=== PATIENT | female | born 1975 | race African-American/Black ===

== ENCOUNTER 2017-10-13 17:31 | Emergency (ER) | payer SELFPAY ==
[~2017-10-13] VITALS: Ht 160 cm; Wt 49.9 kg
[2017-10-13 18:15] VITALS: BP 164/84
[2017-10-13 19:30] VITALS: BP 158/83
--- NOTE | 2017-10-13 21:24 | Emergency Room Report ---
History of Present Illness General Chief Complaint: Behavioral Complaint Present Illness HPI 42-year-old female presents to the emergency department brought by EMS for bizarre aggressive behavior in a liquor store. Patient is noncooperative and answering history of present illness or ROS questions. No complaints at this time. (Valerie Polk) Allergies: Coded Allergies: UNABLE TO ASSESS (Unverified , 10/13/17) Patient History Past Medical History: see triage record Last Menstrual Period: unk (Valerie Polk) Nursing Documentation-[facility] Past Medical History Deferred: Pt Cognitively Impaired (Valerie Polk) Review of Systems All Other Systems: limited - poor pt. cooperation (Valerie Polk) Physical Exam Vital Signs Date Time Temp Pulse Resp B/P (MAP) Pulse Ox O2 Delivery O2 Flow Rate FiO2 10/13/17 17:24 98.4 110 20 130/84 99 Room Air 98.4 Sp02 EP Interpretation: reviewed, normal General Appearance: no apparent distress, alert, GCS 15, non-toxic Head: normocephalic, atraumatic Eyes: bilateral eye normal inspection, bilateral eye PERRL - pin-point ENT: hearing grossly normal, normal voice Neck: full range of motion, no bony tend Respiratory: chest non-tender, lungs clear, normal breath sounds, no respiratory distress, no wheezing, speaking full sentences Cardiovascular #1: regular rate, rhythm, no edema, normal capillary refill Gastrointestinal: normal bowel sounds, non tender, soft Musculoskeletal: back normal, gait/station normal, normal range of motion, non- tender Neurologic: alert, oriented x3, responsive, motor strength/tone normal, sensory intact, speech normal, grossly normal Psychiatric: no suicidal/homicidal ideation, other - angry/aggressive, poorly cooperative, some bizare flights of ideas. Skin: normal color, no rash, warm/dry, well hydrated, other - no open wounds or abrasions (Valerie Polk) Medical Decision Making PA Attestation Dr. uribe is my supervising Physician whom patient management has been discussed with. (Valerie Polk) Diagnostic Impression: Primary Impression: Behavioral change Additional Impressions: Bizarre behavior UTI (urinary tract infection) ER Course 42-year-old female presents to the emergency department brought by EMS for bizarre aggressive behavior in a liquor store. Patient is noncooperative and answering history of present illness or ROS questions. No complaints at this time. . Pt is hyperactive, and has a very anxious and restless affect. Ddx considered but are not limited to OD, SI/HI, psychosis, UTI, intoxication, Over dose, medication side effects, head injury just to name a few. Vital signs: Tachycardic, pt. is afebrile, normal respirations H&PE are most consistent with behavioral/mental health issue. highly suspect Drug use. Patient has pinpoint pupils however is maintaining airway and not in respiratory distress. No evidence of trauma. normal muscle tone. no obvious focal neurological deficits. pt. easily aggravated. ORDERS: --pt. is refusing blood draw initially - Accu-check : 107 -CBC: -CMP -UA: -UDS: -Salicylates and Acetaminophen - -Serum ETOH -EKG: ED INTERVENTIONS: - Pt. ambulating about ED and being aggressive towards staff. - 2mg Ativan IM, 25mg Benadryl IM, 5mg Haldol IM - Close monitoring while pt. rests, with frequent re-evaluations to assess for further complaints or to obtain more information detailing causes for todays behavior and subsequent ED visit. DISPOSITION: Pt. signed out to Dr. Regan. awaiting labs, and reassessment for determining need for psychiatric evaluation. (Valerie Polk) ER Course Please refer to the initial note for the initial history and presentation Patient had become agitated and aggressive in the emergency room It is unclear if the patient's behavior is related to psychiatric versus drug- induced psychosis patient does have multiple drug positive on the screen At this time has continued to rest comfortably Blood work reveals mild anemia there is also evidence of bacteria in the urine patient provided with oral antibiotic , Patient requires further reevaluation upon becoming more oriented Possible discussion with social work/case management At this time handed off to oncoming physician Labs Test 10/13/17 23:11 White Blood Count 11.1 K/UL (4.8-10.8) Red Blood Count 4.52 M/UL (4.20-5.40) Hemoglobin 9.2 G/DL (12.0-16.0) Hematocrit 30.5 % (37.0-47.0) Mean Corpuscular Volume 68 FL (80-99) Mean Corpuscular Hemoglobin 20.3 PG (27.0-31.0) Mean Corpuscular Hemoglobin Concent 30.0 G/DL (32.0-36.0) Red Cell Distribution Width 16.8 % (11.6-14.8) Platelet Count 425 K/UL (150-450) Mean Platelet Volume 4.7 FL (6.5-10.1) Neutrophils (%) (Auto) 78.3 % (45.0-75.0) Lymphocytes (%) (Auto) 14.7 % (20.0-45.0) Monocytes (%) (Auto) 5.6 % (1.0-10.0) Eosinophils (%) (Auto) 0.3 % (0.0-3.0) Basophils (%) (Auto) 1.0 % (0.0-2.0) Urine Color Yellow Urine Appearance Slightly cloudy Urine pH 5 (4.5-8.0) Urine Specific [place] 1.025 (1.005-1.035) Urine Protein 2+ (NEGATIVE) Urine Glucose (UA) Negative (NEGATIVE) Urine Ketones 2+ (NEGATIVE) Urine Occult Blood 2+ (NEGATIVE) Urine Nitrite Negative (NEGATIVE) Urine Bilirubin Negative (NEGATIVE) Urine Urobilinogen 1 MG/DL (0.0-1.0) Urine Leukocyte Esterase 2+ (NEGATIVE) Urine RBC 10-15 /HPF (0 - 2) Urine WBC 60-80 /HPF (0 - 2) Urine Squamous Epithelial Cells Many /LPF (NONE/OCC) Urine Bacteria Few /HPF (NONE) Sodium Level 144 MMOL/L (136-145) Potassium Level 3.1 MMOL/L (3.5-5.1) Chloride Level 108 MMOL/L (98-107) Carbon Dioxide Level 24 MMOL/L (21-32) Anion Gap 12 mmol/L (5-15) Blood Urea Nitrogen 16 mg/dL (7-18) Creatinine 1.1 MG/DL (0.55-1.30) Estimat Glomerular Filtration Rate > 60 mL/min (>60) Glucose Level 108 MG/DL (74-106) Calcium Level 9.3 MG/DL (8.5-10.1) Total Bilirubin 0.5 MG/DL (0.2-1.0) Aspartate Amino Transf (AST/SGOT) 42 U/L (15-37) Alanine Aminotransferase (ALT/SGPT) 36 U/L (12-78) Alkaline Phosphatase 71 U/L (46-116) Total Protein 8.4 G/DL (6.4-8.2) Albumin 3.9 G/DL (3.4-5.0) Globulin 4.5 g/dL Albumin/Globulin Ratio 0.9 (1.0-2.7) Salicylates Level 2.6 ug/mL (2.8-20) Urine Opiates Screen Negative (NEGATIVE) Acetaminophen Level < 2 MCG/ML (10-30) Urine Barbiturates Screen Negative (NEGATIVE) Phencyclidine (PCP) Screen Positive (NEGATIVE) Urine Amphetamines Screen Positive (NEGATIVE) Urine Benzodiazepines Screen Positive (NEGATIVE) Urine Cocaine Screen Positive (NEGATIVE) Urine Marijuana (THC) Screen Positive (NEGATIVE) Serum Alcohol < 3 mg/dL (Kristin Regan DO) Last Vital Signs Date Time Temp Pulse Resp B/P (MAP) Pulse Ox O2 Delivery O2 Flow Rate FiO2 10/13/17 18:15 97.3 82 16 164/84 99 Room Air 97.3 (Valerie Polk) Status: improved (Kristin Regan DO) Disposition: HOME, SELF-CARE Condition: Stable Signed Out To: Dr. Regan (Valeire Polk) Patient Instructions: Self-Destructive Behavior Additional Instructions: Take any previously prescribed medications as directed. Please refrain from recreational drug use. Follow up with a Primary Care Provider in 3-5 days, even if your symptoms have resolved. --Please review list of primary care clinics, if you do not already have a primary care provider Return sooner to ED if new symptoms occur, or current symptoms become worse. Do not drink alcohol, drive, or operate heavy machinery for the rest of the night. - Please note that this Emergency Department Report was dictated using [employer] type bar and segment technology software, occasionally this can lead to erroneous entry secondary to interpretation by the dictation equipment. Valerie Polk Oct 13, 2017 21:24 Kristin Regan DO Oct 14, 2017 06:06
[2017-10-13 21:30] VITALS: BP 153/81
[2017-10-13] MEDS ORDERED: Haloperidol 5mg/ml Inj IM ONE (22:45)
[2017-10-13] MEDS ORDERED: DiphenhydrAMINE 50mg/ml Inj IM ONE (22:45)
[2017-10-13] MEDS ORDERED: LORazepam Inj 2mg/ml 1ml IV ONE (22:45)
[2017-10-13 23:30] VITALS: BP 138/81
[2017-10-13 23:35] LABS: BILIRUBIN, URINE NEGATIVE (NEGATIVE); GLUCOSE, URINE (UA) NEGATIVE (NEGATIVE); KETONES,URINE 2+ (NEGATIVE); LEUKOCYTE ESTERASE ,URINE 2+ (NEGATIVE); NITRITE,URINE NEGATIVE (NEGATIVE); PH,URINE 5 (4.5-8.0); PROTEIN,URINE 2+ (NEGATIVE); UROBILINOGEN,URINE 1 MG/DL (0.0-1.0)
[2017-10-13 23:39] LABS: EOSINOPHILS % (AUTO) 0.3 % (0.0-3.0); HEMATOCRIT 30.5 % (37.0-47.0); HEMOGLOBIN 9.2 G/DL (12.0-16.0); LYMPHOCYTES % (AUTO) 14.7 % (20.0-45.0); MEAN CORPUSCULAR VOLUME 68 FL (80-99); MONOCYTES % (AUTO) 5.6 % (1.0-10.0); NEUTROPHILS % (AUTO) 78.3 % (45.0-75.0); PLATELET COUNT 425 K/UL (150-450); RED BLOOD COUNT 4.52 M/UL (4.20-5.40); RED CELL DISTRIBUTION WIDTH 16.8 % (11.6-14.8); WHITE BLOOD COUNT 11.1 K/UL (4.8-10.8)
[2017-10-13 23:41] LABS: COLOR,URINE YELLOW
[2017-10-13 23:42] LABS: APPEARANCE,URINE SLIGHTLY CLOUDY
[2017-10-13 23:44] LABS: ANION GAP 12 mmol/L (5-15); BLOOD UREA NITROGEN 16 mg/dL (7-18); CALCIUM 9.3 MG/DL (8.5-10.1); CARBON DIOXIDE 24 MMOL/L (21-32); CHLORIDE 108 MMOL/L (98-107); CREATININE 1.1 MG/DL (0.55-1.30); POTASSIUM 3.1 MMOL/L (3.5-5.1); SODIUM 144 MMOL/L (136-145)
[2017-10-13 23:56] LABS: ALANINE AMINOTRANSFERASE 36 U/L (12-78); ALBUMIN 3.9 G/DL (3.4-5.0); ALBUMIN/GLOBULIN RATIO 0.9 (1.0-2.7); ALKALINE PHOSPHATASE 71 U/L (46-116); ASPARTATE AMINO TRANSFERASE 42 U/L (15-37); BILIRUBIN,TOTAL 0.5 MG/DL (0.2-1.0)
[2017-10-14 01:30] VITALS: BP 133/79
[2017-10-14 03:30] VITALS: BP 134/84
[2017-10-14 05:30] VITALS: BP 137/81
[2017-10-14] MEDS ORDERED: Cephalexin 500mg cap ORAL ONE (06:15)
[2017-10-14 08:30] VITALS: BP 154/80
[2017-10-14 12:28] VITALS: BP 131/75
[2017-10-14] MEDS ORDERED: cefTRIAXone 1 GM in NS 55 ML IVPB ONE (13:00)
[2017-10-14] MEDS ORDERED: CEPHALEXIN500 MG ORAL (17:14)
[2017-10-14 17:25] VITALS: BP 122/70
== END 2017-10-14 17:25 | disposition home or self-care (01) ==
LOC: EDBD 17:31 → EMR 18:08
DX: F91.9 Conduct disorder, unspecified (principal); N39.0 Urinary tract infection, site not specified; F19.10 Other psychoactive substance abuse, uncomplicated
CPT/HCPCS: 36415; 80053; 80307; 81003; 85025; 87086; 99283; G0480; J0696; J1200; J1630; 80329